=== PATIENT | female | born 1995 | race Caucasian/White ===

== ENCOUNTER 2021-07-29 08:15 | Emergency (ER) | payer BC ==
--- NOTE | 2021-07-29 08:42 | EDM.PDOC ---
ED HPI GENERAL MEDICAL PROBLEM - General Chief Complaint: Abdominal Pain Stated Complaint: ABDOMINAL PAIN AND NAUSEA Time Seen by Provider: 07/29/21 08:36 Source of Information: Reports: Patient History Limitations: Reports: No Limitations - History of Present Illness INITIAL COMMENTS - FREE TEXT/NARRATIVE: 26-year-old female presents to the ED with severe right lower quadrant abdominal pain rating across her lower abdomen particularly suprapubically. It does not radiate into her back. She states it came on fairly abruptly around 2300 hrs. last night. She thought she might be constipated since her stools recently have been very hard and difficult to pass. Associated nausea without vomiting. No genitourinary complaints pain is rated as 9 out of 10 at present and did keep her awake all night long. She has had previous appendectomy. Last known menstrual period was estimated to be rate around July 19-. Period was on time and as expected. Patient is not using any form of control. She denies fever or chills. Onset: Sudden Onset Date: 07/28/21 Onset Time: 23:00 Duration: Hour(s):, Getting Worse Location: Reports: Abdomen (Right lower quadrant of the abdomen and radiating suprapubically.) Quality: Reports: Ache, Throbbing, Other Severity: Severe (Deep aching pressure with no colicky component 8-9 out of 10) Improves with: Reports: None Worsens with: Reports: Other (Is worse with walking. She finds she cannot walk erect.) Context: Denies: Activity, Exercise, Lifting, Sick Contact, Trauma, Other Associated Symptoms: Reports: Loss of Appetite, Malaise (From not sleeping all night.), Nausea/Vomiting. Denies: No Other Symptoms, Confusion, Chest Pain, Cough, cough w sputum, Diaphoresis, Fever/Chills, Headaches, Rash, Seizure (Nausea without vomiting), Shortness of Breath, Syncope, Weakness Treatments [employer]: Reports: Other (see below) (None.) Right Lower Abdomen Pain Score (Numeric/FACES): 8 - Related Data Allergies Allergy/AdvReac Type Severity Reaction Status Date / Time Sulfa (Sulfonamide Allergy Severe Hives Verified 07/29/21 08:27 Antibiotics) Home Meds: Home Meds Levothyroxine 75 mcg PO ACBREAKFAST 07/29/21 [History] Past Medical History Endocrine/Metabolic History: Reports: Hypothyroidism (Currently taking levothyroxine 75 mcg daily) - Past Surgical History GI Surgical History: Reports: Appendectomy Social & Family History - Tobacco Use Tobacco Use Status *Q: Never Tobacco User - Caffeine Use Caffeine Use: Reports: Coffee - Recreational Drug Use Recreational Drug Use: No - Living Situation & Occupation Living situation: Reports: Single Occupation: Employed ED ROS GENERAL - Review of Systems Review Of Systems: See Below Constitutional: Reports: Malaise, Decreased Appetite (From not sleeping all night). Denies: Fever, Chills HEENT: Reports: No Symptoms Respiratory: Reports: No Symptoms Cardiovascular: Reports: No Symptoms Endocrine: Reports: No Symptoms GI/Abdominal: Reports: Abdominal Pain, Constipation (See history of present illness) : Reports: No Symptoms, Other (Last normal menstrual period was estimated to be around the end of June between the and .) Musculoskeletal: Reports: No Symptoms Skin: Reports: No Symptoms Neurological: Reports: No Symptoms Psychiatric: Reports: No Symptoms Hematologic/Lymphatic: Reports: No Symptoms Immunologic: Reports: No Symptoms ED EXAM, GI/ABD - Physical Exam Exam: See Below Exam Limited By: No Limitations General Appearance: Alert, WD/WN, Moderate Distress (Patient is in obvious significant pain.), Other (Temperature is 36.0 heart rate 98 sinus respiratory is 18 with O2 sats 100% room air. BP 166/98) Eyes: Bilateral: Normal Appearance (No blepharal pallor or scleral icterus) Head: Atraumatic, Normocephalic Neck: Normal Inspection, Supple, Non-Tender, Full Range of Motion. No: Lymphadenopathy (L), Lymphadenopathy (R) Respiratory/Chest: No Respiratory Distress, Lungs Clear, Normal Breath Sounds, No Accessory Muscle Use Cardiovascular: Normal Peripheral Pulses, Regular Rate, Rhythm, No Edema, No Gallop, No Murmur, No Rub, Other (Blood pressure initially is elevated at 1 [phone] presumably due to pain and apprehension) GI/Abdominal Exam: Normal Bowel Sounds, Soft, No Organomegaly, Guarding (Throughout the right hemiabdomen), Rebound, Tender (With rebound tenderness right hemiabdomen right hemiabdomen), Other ( worse right lower quadrant mildly positive Dietz sign) Back Exam: Normal Inspection, Full Range of Motion. No: CVA Tenderness (L), CVA Tenderness (R) Extremities: Normal Inspection, Normal Range of Motion, Non-Tender, No Pedal Edema Neurological: Alert, Oriented, CN II-XII Intact, Normal Cognition Psychiatric: Normal Affect, Normal Mood Skin Exam: Warm, Dry, Intact, Normal Color, No Rash Course - Vital Signs Last Recorded V/S: Last Vital Signs Temp 36.0 C L 07/29/21 08:24 Pulse 98 07/29/21 08:24 Resp 18 07/29/21 08:24 BP 166/98 H 07/29/21 08:24 Pulse Ox 100 07/29/21 08:24 - Orders/Labs/Meds Orders: Active Orders 24 hr Category Date Time Status TYPE AND SCREEN [BBK] Stat Lab 07/29/21 08:53 Received Dextrose 5%-0.9% NaCl [Dextrose 5%-Normal Saline] 1,000 Med 07/29/21 08:45 Active ml IV ASDIRECTED Magnesium Citrate [Citrate of Magnesia] Med 07/29/21 10:07 Once 296 ml PO ONETIME ONE Medication Orders Dextrose/Sodium Chloride (Dextrose 5%-Normal Saline) 1,000 mls @ 500 mls/hr IV ASDIRECTED FILIBEROT Last Admin: 07/29/21 08:52 Dose: 500 mls/hr Documented by: KAREN Labs: Laboratory Tests 07/29/21 07/29/21 07/29/21 Range/Units 08:40 08:53 08:53 WBC 8.62 (3.98-10.04) K/mm3 RBC 5.37 H (3.98-5.22) M/mm3 Hgb 15.5 (11.2-15.7) gm/dl Hct 44.9 (34.1-44.9) % MCV 83.6 (79.4-94.8) fl MCH 28.9 (25.6-32.2) pg MCHC 34.5 (32.2-35.5) g/dl RDW Std Deviation 38.8 (36.4-46.3) fL Plt Count 260 (182-369) K/mm3 MPV 8.9 L (9.4-12.3) fl Neut % (Auto) 60.5 (34.0-71.1) % Lymph % (Auto) 29.9 (19.3-51.7) % [place] % (Auto) 8.1 (4.7-12.5) % Eos % (Auto) 0.9 (0.7-5.8) Baso % (Auto) 0.3 (0.1-1.2) % Neut # (Auto) 5.20 (1.56-6.13) K/mm3 Lymph # (Auto) 2.58 (1.18-3.74) K/mm3 [place] # (Auto) 0.70 H (0.24-0.36) K/mm3 Eos # (Auto) 0.08 (0.04-0.36) K/mm3 Baso # (Auto) 0.03 (0.01-0.08) K/mm3 PT 10.8 (9.7-12.0) SECONDS INR 1.01 APTT 26.0 (21.7-31.4) SECONDS Sodium (136-145) mEq/L Potassium (3.5-5.1) mEq/L Chloride (98-107) mEq/L Carbon Dioxide (21-32) mEq/L Anion Gap (5-15) BUN (7-18) mg/dL Creatinine (0.55-1.02) mg/dL Est Cr Clr Drug Dosing mL/min Estimated GFR (MDRD) (>60) mL/min BUN/Creatinine Ratio (14-18) Glucose (70-99) mg/dL Calcium (8.5-10.1) mg/dL Total Bilirubin (0.2-1.0) mg/dL AST (15-37) U/L ALT (14-59) U/L Alkaline Phosphatase (46-116) U/L C-Reactive Protein (<1.0) mg/dL Total Protein (6.4-8.2) g/dl Albumin (3.4-5.0) g/dl Globulin gm/dL Albumin/Globulin Ratio (1-2) Lipase (73-393) U/L HCG, Qual (NEGATIVE) Urine Color Yellow (Yellow) Urine Appearance Clear (Clear) Urine pH 6.0 (5.0-8.0) Ur Specific [place] 1.020 (1.005-1.030) Urine Protein Negative (Negative) Urine Glucose (UA) Negative (Negative) Urine Ketones Trace H (Negative) Urine Occult Blood Trace-intact H (Negative) Urine Nitrite Negative (Negative) Urine Bilirubin Negative (Negative) Urine Urobilinogen 0.2 (0.2-1.0) Ur Leukocyte Esterase Negative (Negative) Urine RBC 5-10 H (0-5) /hpf Urine WBC 0-5 (0-5) /hpf Ur Squamous Epith Cells 0-5 (0-5) /hpf Urine Bacteria Few (FEW) /hpf Urine Mucus Few (FEW) /hpf 07/29/21 07/29/21 Range/Units 08:53 08:53 WBC (3.98-10.04) K/mm3 RBC (3.98-5.22) M/mm3 Hgb (11.2-15.7) gm/dl Hct (34.1-44.9) % MCV (79.4-94.8) fl MCH (25.6-32.2) pg MCHC (32.2-35.5) g/dl RDW Std Deviation (36.4-46.3) fL Plt Count (182-369) K/mm3 MPV (9.4-12.3) fl Neut % (Auto) (34.0-71.1) % Lymph % (Auto) (19.3-51.7) % [place] % (Auto) (4.7-12.5) % Eos % (Auto) (0.7-5.8) Baso % (Auto) (0.1-1.2) % Neut # (Auto) (1.56-6.13) K/mm3 Lymph # (Auto) (1.18-3.74) K/mm3 [place] # (Auto) (0.24-0.36) K/mm3 Eos # (Auto) (0.04-0.36) K/mm3 Baso # (Auto) (0.01-0.08) K/mm3 PT (9.7-12.0) SECONDS INR APTT (21.7-31.4) SECONDS Sodium 139 (136-145) mEq/L Potassium 3.3 L (3.5-5.1) mEq/L Chloride 103 (98-107) mEq/L Carbon Dioxide 27 (21-32) mEq/L Anion Gap 12.3 (5-15) BUN 12 (7-18) mg/dL Creatinine 1.0 (0.55-1.02) mg/dL Est Cr Clr Drug Dosing 65.46 mL/min Estimated GFR (MDRD) > 60 (>60) mL/min BUN/Creatinine Ratio 12.0 L (14-18) Glucose 96 (70-99) mg/dL Calcium 8.8 (8.5-10.1) mg/dL Total Bilirubin 0.7 (0.2-1.0) mg/dL AST 49 H (15-37) U/L ALT 41 (14-59) U/L Alkaline Phosphatase 64 (46-116) U/L C-Reactive Protein 0.6 (<1.0) mg/dL Total Protein 7.5 (6.4-8.2) g/dl Albumin 4.3 (3.4-5.0) g/dl Globulin 3.2 gm/dL Albumin/Globulin Ratio 1.3 (1-2) Lipase 64 L (73-393) U/L HCG, Qual Negative (NEGATIVE) Urine Color (Yellow) Urine Appearance (Clear) Urine pH (5.0-8.0) Ur Specific [place] (1.005-1.030) Urine Protein (Negative) Urine Glucose (UA) (Negative) Urine Ketones (Negative) Urine Occult Blood (Negative) Urine Nitrite (Negative) Urine Bilirubin (Negative) Urine Urobilinogen (0.2-1.0) Ur Leukocyte Esterase (Negative) Urine RBC (0-5) /hpf Urine WBC (0-5) /hpf Ur Squamous Epith Cells (0-5) /hpf Urine Bacteria (FEW) /hpf Urine Mucus (FEW) /hpf Meds: Medications Generic Name Dose Route Start Last Admin Trade Name Freq PRN Reason Stop Dose Admin Dextrose/Sodium Chloride 1,000 mls @ 500 mls/hr 07/29/21 08:45 07/29/21 08:52 Dextrose 5%-Normal Saline IV 500 mls/hr ASDIRECTED FILIBERTO Administration Discontinued Medications Generic Name Dose Route Start Last Admin Trade Name Freq PRN Reason Stop Dose Admin Hydromorphone HCl 1 mg 07/29/21 08:43 07/29/21 08:53 Hydromorphone 1 Mg/Ml Syringe IVPUSH 07/29/21 08:44 1 mg ONETIME ONE Administration Iopamidol 100 ml 07/29/21 09:36 07/29/21 09:37 Iopamidol 755 Mg/Ml 100 Ml Bottle IVPUSH 07/29/21 09:37 100 ml ONETIME ONE Administration Metoclopramide HCl 7.5 mg 07/29/21 08:43 07/29/21 08:53 Metoclopramide 10 Mg/2 Ml Sdv IVPUSH 07/29/21 08:44 7.5 mg ONETIME ONE Administration Sodium Chloride 10 ml 07/29/21 09:36 07/29/21 09:37 Sodium Chloride 0.9% 10 Ml Syringe FLUSH 07/29/21 09:37 10 ml ONETIME ONE Administration - Radiology Interpretation Free Text/Narrative:: 26-year-old female presents to the ED with fairly abrupt onset of right lower quadrant abdominal pain starting about 2300 hrs. last evening. Pain is described as constant and severe 9 out of 10. Kept her awake all night long. She thought initially she may be constipated since stools recently have been quite hard and difficult to pass. However pain is gradually escalated overnight. She was not able to sleep at all. She has no pain in her back or flank to suggest renal colic. She has had previous appendectomy. Exam reveals bowel sounds to be active in all 4 quadrants. Markedly tender throughout the right hemiabdomen particular right lower quadrant with guarding and rebound tenderness. She also has a mildly positive Dietz sign. Concern is for possible ruptured ovarian cyst with hemorrhage into the right paracolic gutter. She is not hypotensive at this time. She is not using any form of control and believes her period was at the end of July 12. Work-up for possible ectopic to be done. Plan IV D5 normal saline at 500 mils per hour. Will be given Dilaudid 1 mg IV with Reglan 7.5 mg IV for pain and nausea relief. Plan will be to CT the abdomen and pelvis with IV contrast only. - Re-Assessments/Exams Free Text/Narrative Re-Assessment/Exam: 07/29/21 09:35 White count is 8.62 without a differential showing 60.5% neutrophils. Hemoglobin is 15.5 with hematocrit of 44.9. MCV is 83.6. Platelet count 260,000 PT is 10.8 with an INR of 1.01. Sodium is 139 with potassium slightly low at 3.3. Chloride 103 with a bicarb of 27. Anion gap is 12.3. BUN is 12 with a creatinine of 1.0 GFR is greater than 60. Glucose is 96 with a calcium of 8.8. Liver function is normal other than slightly elevated AST at 49. C-reactive protein is 0.6 total protein 7.5 with an albumin fraction of 4.3 beta hCG is negative. Serum lipase is normal at 64. Urinalysis shows trace of ketones trace of occult blood and 5-10 RBCs per high-power field. Patient still has some mild right-sided abdominal discomfort the pain is markedly improved after above analgesia. She will be going to CT shortly 07/29/21 09:47 T of the abdomen has been completed with IV contrast only. Visualized portions of the lungs appear to be within normal limits. She does have a small hiatal hernia with slightly patulous esophagus. Liver is normal with no intraductal dilatation. Gallbladder is present and does not contain any calcified gallstones. Pancreas appears normal. Stomach appears normal. Spleen appears normal. Both adrenal glands appear normal. Aorta shows no aneurysm. No retroperitoneal adenopathy or mesenteric abnormalities are seen. Both kidneys take contrast up normally with no dilatation of either ureter. Delayed films show normal filling of the urinary bladder. Uterus and ovaries appear to be within normal limits. Minimal amount of free fluid is seen within the pelvis which is felt to be physiologic. There is a large amount of stool throughout the right hemicolon and transverse colon particularly distending the cecum. The appendix is absent. Departure - Departure Time of Disposition: 10:08 Disposition: Home, Self-Care 01 Condition: Fair Clinical Impression: Constipation by delayed colonic transit Abdominal pain Qualifiers: Abdominal location: right lower quadrant Qualified Code(s): R10.31 - Right lower quadrant pain - Discharge Information *PRESCRIPTION DRUG MONITORING PROGRAM REVIEWED*: Not Applicable *COPY OF PRESCRIPTION DRUG MONITORING REPORT IN PATIENT NIGHAT: Not Applicable Referrals: Maryann Sung MD [Primary Care Provider] - Forms: ED Department Discharge, ED Return to Work/School Form Additional Instructions: Evaluation in the emergency room this morning in regards to right lower quadrant abdominal pain rating up towards your right diaphragm that started last night and persisted throughout the night. You appear to be in a significant amount of pain at the time of evaluation in the emergency department. The abdomen was diffusely tender as well. Lab work proved to be completely normal with no signs of infection and test was negative. CT scan of the abdomen performed reveals liver spleen pancreas kidneys adrenal glands and uterus and ovaries to be normal. There is a large amount of stool distending the right hemicolon and transverse colon compatible with constipation as a cause of your current pain syndrome. Pain improved with IV medication. Suggest treatment with magnesium citrate 10 ounces mixed with 6 to 8 ounces of juice of choice or Gatorade Powerade and taken once by mouth. This will probably take between 2 to 4 hours to start to work because of Dilaudid on board slowing down the bowel. Bowels will usually move 3 or 4 times ending with some diarrhea but abdominal pain should be markedly improved after bowel cleanse. Follow-up with [facility] and if not better after bowel cleanse. I would suggest purchasing MiraLAX powder and taking 17 g or 1 scoop daily or every other day as needed to prevent future problems with constipation. Sepsis Event Note (ED) - Evaluation Sepsis Screening Result: No Definite Risk - Focused Exam Vital Signs: Vital Signs Temp Pulse Resp BP Pulse Ox 07/29/21 08:24 36.0 C L 98 18 166/98 H 100 - My Orders Last 24 Hours: My Active Orders 07/29/21 08:45 Dextrose 5%-0.9% NaCl [Dextrose 5%-Normal Saline] 1,000 ml IV ASDIRECTED 07/29/21 08:53 TYPE AND SCREEN [BBK] Stat 07/29/21 10:07 Magnesium Citrate [Citrate of Magnesia] 296 ml PO ONETIME ONE - Assessment/Plan Last 24 Hours: My Active Orders 07/29/21 08:45 Dextrose 5%-0.9% NaCl [Dextrose 5%-Normal Saline] 1,000 ml IV ASDIRECTED 07/29/21 08:53 TYPE AND SCREEN [BBK] Stat 07/29/21 10:07 Magnesium Citrate [Citrate of Magnesia] 296 ml PO ONETIME ONE
[2021-07-29] MEDS ORDERED: Metoclopramide 10 MG/2 ML SDV IVPUSH ONE (08:43)
[2021-07-29] MEDS ORDERED: HYDROmorphone 1 MG/ML Syringe IVPUSH ONE (08:43)
[2021-07-29] MEDS ORDERED: Dextrose 5%-0.9% NaCl 1,000 ML IV SCH (08:45)
[2021-07-29] MEDS ORDERED: Sodium Chloride 0.9% 10 ML Syringe FLUSH ONE (09:36)
[2021-07-29] MEDS ORDERED: Iopamidol 755 Mg/ML 100 ML Bottle IVPUSH ONE (09:36)
--- NOTE | 2021-07-29 09:53 | CT ---
CT abdomen and pelvis Technique: Multiple axial sections were obtained from above the dome of the diaphragm inferiorly through the pubic symphysis. Intravenous contrast was utilized. No oral contrast has been given. Comparison: No prior abdominal imaging is available. Findings: Visualized lung bases show nothing acute. Liver contains no focal abnormality. Spleen size is normal. Adrenal glands show no nodule. Pancreas is within normal limits. Kidneys show symmetric contrast enhancement with no hydronephrosis or mass being seen. Aorta shows no aneurysm. No retroperitoneal adenopathy or mesenteric abnormalities are seen. Appendix is not visualized. Minimal free fluid is seen within the pelvis which is most likely physiologic. No pelvic mass or adenopathy is seen. Bowel gas pattern appears within normal limits. Bone window settings were reviewed which appear within normal limits for the patient's age. Impression: 1. Nonvisualized appendix most likely relating to previous appendectomy. 2. No additional abnormality is appreciated on CT study of the abdomen and pelvis. Diagnostic code #2
[2021-07-29] MEDS ORDERED: Magnesium Citrate Solution 296 ML Bottle PO ONE (10:07)
== END 2021-07-29 10:38 | disposition home or self-care (01) ==
LOC: JD.ED 08:15
DX: K59.01 Slow transit constipation (principal); E03.9 Hypothyroidism, unspecified; Z88.2 Allergy status to sulfonamides; Z79.899 Other long term (current) drug therapy
CPT/HCPCS: 36415; 74177; 80053; 81001; 83690; 84703; 85025; 85610; 85730; 86140; 86850; 86900; 86901; 96374; 96375; 99284; A9270; J1170; J2765; J7042; Q9967